=== PATIENT | female | born 1970 | race Caucasian/White ===

== ENCOUNTER 2017-10-13 00:24 | Inpatient (IN) | payer OTHER ==
[~2017-10-13] VITALS: Ht 170.2 cm; Wt 102.1 kg
[2017-10-13] VITALS (7 sets, daily range): BP systolic 109–155; BP diastolic 61–104
[~2017-10-13 00:24] MED LIST: AMITRIPTYLINE H10 M1; HYDROCODON-ACE1 EA10; HYDROCODON-ACE1 EACH PO; NASONEX17 GM
[2017-10-13] MEDS ORDERED: LISINOPRIL5 MG PO (00:33)
[2017-10-13 00:49] LABS: ABSOLUTE BASOPHILS 0.1 thou/uL (0.0-0.2); ABSOLUTE EOSINOPHILS 0.2 thou/uL (0.0-0.7); ABSOLUTE MONOCYTES 0.8 thou/uL (0.0-1.2); ABSOLUTE NEUTROPHILS 6.9 thou/uL (1.6-8.1); BASOPHILS 0.8 %; EOSINOPHILS 1.7 %; HEMATOCRIT 47.8 % (37.0-47.0); HEMOGLOBIN 16.2 gm/dL (12.0-15.0); LYMPHOCYTES 27.6 %; MCH 31.3 pg (26.0-34.0); MCHC 33.9 g/dL (28.0-37.0); MCV 92.4 fL (80.0-100.0); MONOCYTES 7.5 %; MPV 8.6 fl. (7.2-11.1); NUCLEATED RBCS 0 /100WBC; PLATELET COUNT* 310 thou/uL (150-400); POLYS 62.4 %; RBC 5.17 mil/uL (4.20-5.00); RDW-CV 13.2 % (10.5-14.5)
[2017-10-13 02:05] LABS: CALCIUM 8.4 mg/dL (8.5-10.1); CREATININE 0.9 mg/dL (0.6-1.3); POTASSIUM 3.3 mmol/L (3.5-5.1)
[2017-10-13 02:11] LABS: ALBUMIN 3.2 g/dL (3.4-5.0); TOTAL BILIRUBIN 0.3 mg/dL (<0.1-1.0); TOTAL PROTEIN 6.3 g/dL (6.4-8.2); TROPONIN-I LEVEL 0.39 ng/mL (<0.06)
--- NOTE | 2017-10-13 15:24 | EKG ---
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: SRIDEVI : 1970 Requested By: Kathleen De La Cruz Order Number: [id number] MD: Jb Avilez Measurements Intervals [place] Rate: 162 P: 0 IN: QRS: 58 QRSD: 95 T: 261 QT: 269 QTc: 442 Interpretive Statements Supraventricular tachycardia Repol abnrm suggests ischemia, diffuse leads Baseline wander in lead(s) V5,V6 No previous ECG available for comparison Electronically Signed On 10-13-2017 15:24:00 CDT by Jb Avilez [email or web address] <ELECTRONICALLY SIGNED> By: Jb Avilez MD, [facility] 10/13/17 1524 0031 0031 Jb Avilez MD, [facility] /EPI
[2017-10-14 00:01] VITALS: BP 98/49
[2017-10-14 04:00] VITALS: BP 104/54
[2017-10-14 06:22] LABS: CHOLESTEROL 192 mg/dL (<200); HDL CHOLESTEROL 40 mg/dL (>40); LDL CHOLESTEROL 110 mg/dL (<100); SERUM ASSESSMENT Clear; TC:HDL 4.8 Ratio (Not establshd); TRIGLYCERIDE 213 mg/dL (<150); VLDL 43 mg/dL (<40)
[2017-10-14 08:19] VITALS: BP 93/55
[2017-10-14 09:48] VITALS: BP 93/55
--- NOTE | 2017-10-14 11:54 | EKG ---
[place] [address] ELECTROCARDIOGRAM REPORT Name: ABEL QUACH Room: [address] ADM IN M.R.#: [id number] Admission: 10/13/17 Attend Phys: Collin Baez, Discharge: Date of : 70 Report #: [id number] THIS REPORT FOR: //name// [facility] Test Date: 2017-10-14 Test Time: 08:44:35 Pat Name: ABEL QUACH Department: Room: [address] Gender: F Account Leader: 27O : 1970 Requested By: Jb Avilez Order Number: [id number] Maryann MD: Jb Avilez Measurements Intervals [place] Rate: 49 P: 52 NV: 128 QRS: 63 QRSD: 99 T: 36 QT: 466 QTc: 421 Interpretive Statements Sinus bradycardia Compared to ECG 10/13/2017 00:31:57 Supraventricular tachycardia no longer present Possible ischemia no longer present Electronically Signed On 10-14-2017 11:54:44 CDT by Jb Avilez [email or web address] <ELECTRONICALLY SIGNED> By: Jb Avilez MD, [facility] 10/14/17 1154 0844 Jb Avilez MD, [facility] /EPI
--- NOTE | 2017-10-14 14:34 | 2DMMODE ---
[place] [address] 2 D/M-MODE ECHOCARDIOGRAM Name: MAINABEL JACKSON Room: [address] IN [facility]#: [id number] Admission: 10/13/17 Attend Phys: Collin Garces Discharge: Date of : 70 Date of Service: 10/14/17 1434 Report #: [id number] THIS REPORT FOR: //name// APPROVED REPORT Study performed: 10/14/2017 11:26:41 EXAM: Comprehensive 2D, Doppler, and color-flow Echocardiogram Patient Location: In-Patient Room #: 220 Status: routine BSA: 2.13 HR: 52 bpm BP: 93/55 mmHg Other Information Study Quality: Good Indications Elevated Troponin SVT 2D Dimensions LVEF(%): 73.87 (>50%) IVSd: 8.12 (7-11mm) LVOT Diam: 19.33 (18-24mm) LVDd: 55.12 mm PWd: 7.75 (7-11mm) Ascending Ao: 22.38 (22-36mm) LVDs: 31.26 (25-40mm) Aortic Root: 22.78 mm Romero's LVEF: 73.87 % Volumes Left Atrial Volume (Systole) LA ESV Index: 25.00 mL/m2 Aortic Valve AoV Peak David.: 1.36 m/s AO Peak Gr.: 7.43 mmHg LVOT Max P.55 mmHg AO Mean Gr.: 3.72 mmHg LVOT Mean P.55 mmHg LVOT Max V: 0.94 m/s AO V2 VTI: 25.99 cm LVOT Mean V: 0.56 m/s BRANDON (VTI): 2.38 cm2 LVOT V1 VTI: 21.06 cm Mitral Valve E/A Ratio: 1.35 [place] [address] 2 D/M-MODE ECHOCARDIOGRAM Name: MAINABELGUANACO JACKSON Room: [address] IN ..#: [id number] Admission: 10/13/17 Attend Phys: Collin Garces Discharge: Date of : 70 Date of Service: 10/14/17 1434 Report #: [id number] MV Decel. Time: 149.18 ms MV E Max David.: 1.01 m/s MV PHT: 43.26 ms MVA (PHT): 5.09 cm2 TDI E/Lateral E': 8.42 E/Medial E': 5.94 Medial E' David.: 0.17 m/s Lateral E' David.: 0.12 m/s Pulmonary Valve PV Peak David.: 1.06 m/s PV Peak Gr.: 4.50 mmHg Tricuspid Valve TR Peak Gr.: 20.16 mmHg RVSP: 25.16 mmHg Left Ventricle The left ventricle is normal size. There is normal LV segmental wall motion. There is normal left ventricular wall thickness. Left ventricular systolic function is normal. The left ventricular ejection fraction is within the normal range. LVEF is 55-60%. The left ventricular diastolic function is normal. Right Ventricle The right ventricle is normal size. The right ventricular systolic function is normal. Atria The left atrium size is normal. The right atrium size is normal. Aortic Valve The aortic valve is normal in structure. No aortic regurgitation is present. There is no aortic valvular stenosis. Mitral Valve The mitral valve is normal in structure. Mild mitral regurgitation. No evidence of mitral valve stenosis. Tricuspid Valve The tricuspid valve is normal in structure. Mild tricuspid regurgitation. The RVSP is _25.2 mmHg. Pulmonic Valve Pulmonic valve is not well visualized. There is no pulmonic [place] [address] 2 D/M-MODE ECHOCARDIOGRAM Name: ABEL QUACH Room: [address] IN M.R.#: [id number] Admission: 10/13/17 Attend Phys: Collin Garces Discharge: Date of : 70 Date of Service: 10/14/17 1434 Report #: [id number] Great Vessels The aortic root is normal in size. IVC is normal in size and collapses with >50% inspiration Pericardium There is no pericardial effusion. <Conclusion> LVEF is 55-60%. Mild mitral regurgitation. <ELECTRONICALLY SIGNED> By: Jb Avilez MD, [facility] 10/14/17 1434 1434 1434 Jb Avilez MD, FACC /INF
[2017-10-14 15:37] VITALS: BP 144/79
[2017-10-14] MEDS ORDERED: FLECAINIDE ACET50 M1 PO (16:36)
[2017-10-14 16:40] VITALS: BP 93/55
--- NOTE | 2017-10-14 17:09 | CARDNUC ---
[place] [address] CARDIAC NUCLEAR IMAGING REPORT Name: ABEL QUACH Room: [address] IN [facility]#: [id number] Admission: 10/13/17 Attend Phys: Collin Garces Discharge: 10/14/17 Date of : 70 Date of Service: 10/14/17 1709 Report #: [id number] THIS REPORT FOR: //name// APPROVED REPORT Study performed: 10/14/2017 07:55:00 Exam: Nuclear Stress Test Indication: Troponin elevation,PSVT Patient Location: In-Patient Room #: 220 Stress Tech: Deann Sterling Stress Nurse: Estrella Lara RN NM Tech:ZARINA Mark Ht: 5 ft 7 in Wt: 225 lbs BSA: 2.13 m2 BMI: 35.23 Medical History Medical History: HTN, Hyperlipidemia, Smoking Medications: LISINOPRIL, SOTALOL,ASA Allergies: No known drug allergies Cardiac Risk Factors: Hyperlipidemia, HTN, Smoking, FHX of CAD Exercise History: Physically active Meds Held (24 hrs): - Stress Test Details Stress Test: Pharmacologic stress was paired with low level exercise. Reason for pharmacologic stress test: physical limitation. HR Resting HR: 54 bpm Max Heart Rate (APMHR): 173 bpm Max HR Achieved: 103 bpm Target HR (85% APMHR): 147 bpm % of APMHR: 59 Recovery HR: 78 bpm BP Resting BP: 110/78 mmHg Max BP: 118/60 mmHg ECG Resting ECG: Sinus Rhythm, nonspecific [place] [address] CARDIAC NUCLEAR IMAGING REPORT Name: ABEL QUACH Room: [address]#: [id number] Admission: 10/13/17 Attend Phys: Collin Garces Discharge: 10/14/17 Date of : 70 Date of Service: 10/14/17 1709 Report #: [id number] Stress ECG: Sinus Rhythm, nonspecific ST-T abnormalities ST Change: None Arrhythmia: None Recovery ECG: Sinus Rhythm, nonspecific ST-T abnormalities Recovery ST Change: None Recovery Arrhythmia: None Clinical Reason for Termination: Completed protocol Stress Symptoms: Chest pain Exercise duration: 4 min 0 sec Exercise capacity: 2.3 METs The patient tolerated Lexiscan infusion without significant symptoms. Stress ECG Conclusion The baseline 12-lead electrocardiogram shows sinus rhythm with some nonspecific ST segment EKGs obtained during and post Lexiscan infusion show sinus rhythm with no significant ST or T wave changes when compared baseline. There were no stress-induced arrhythmias. NM EXAM: Myocardial Perfusion STRESS/REST Imaging Protocol: Stress Tc-99m/Rest Tc-99m 2 days Pharmacologic Stress Pharmacologic stress test was performed by injecting Regadenoson 0.4 mg IV push followed by the intravenous injection of 38.0 mCi of Tc-99m Sestamibi. Time of stress injection: 1350 Date: 10/14/2017 Time of stress imagin Administration Route: IV Gated Stress SPECT was performed 40 minutes after stress injection. The images were gated to evaluate regional wall motion and calculate left ventricular ejection fraction. Prone imaging was performed. Study Quality Study: Good Artifact: No artifact Study Data Post stress, the left ventricular ejection was 50%[place] [address] CARDIAC NUCLEAR IMAGING REPORT Name: ABEL QUACH Room: [address] IN [facility]#: [id number] Admission: 10/13/17 Attend Phys: Collin Garces Discharge: 10/14/17 Date of : 70 Date of Service: 10/14/17 1709 Report #: [id number] Perfusion Myocardial perfusion images obtained post Lexiscan stress show uniform uptake of the radioisotope throughout the myocardium without defect. Wall Motion Normal left ventricular wall motion. Nuclear Conclusion ECG Findings: non-diagnostic Clinical Findings: negative for ischemia Nuclear Findings: negative for ischemia Exercise Capacity: not assessed Left Ventricular Function: normal Risk Study: low Myocardial perfusion images show no defect to suggest infarct or ischemia. Left ventricular systolic function appears normal on gated studies. This is a low risk study. <Conclusion> The baseline 12-lead electrocardiogram shows sinus rhythm with some nonspecific ST segment EKGs obtained during and post Lexiscan infusion show sinus rhythm with no significant ST or T wave changes when compared baseline. There were no stress-induced arrhythmias. <ELECTRONICALLY SIGNED> By: Tawanda Garcia MD, FACC 10/14/171708 08 08 Tawanda Garcia MD, FACC /INF
--- NOTE | 2017-10-14 18:03 | CON ---
[address] [address] CONSULTATION Name: ABEL QUACH Room: [address] IN M.R.#: [id number] Admission: 10/13/17 Attend Phys: Collin Baez, Discharge: 10/14/17 Date of : 70 Report #: [id number] THIS REPORT FOR: //name// CC: CYNTHIA physician/PCP Tabby Baez DATE OF SERVICE: 10/13/2017 HISTORY OF PRESENT ILLNESS: The patient is a 47-year-old single white female who came into Emergency Room complaining of palpitations. The patient had no previous history of heart disease. She notes about 6 months ago, she felt heart racing about 2 hours. She saw a primary care physician, but no further cardiac workup was recommended. Last night, she was at home when she began to feel her heart beating fast and irregular. It was hard to take a deep breath. This lasted for several hours. She finally came to the Emergency Room last night. She is noted to be in a narrow complex tachycardia. She was given IV adenosine. She converted to sinus rhythm. I was asked to see her for further evaluation and treatment. She is not very active, but denies any chest pain. She is short of breath with exertion. She has had no syncope or edema. PAST MEDICAL HISTORY: She is , last menstrual period was 2 years ago when she went through menopause. She has had a tubal ligation and cholecystectomy. She has a history of hypertension. She has had high cholesterol. No diabetes. MEDICATIONS: Include lisinopril. ALLERGIES: She has no known drug allergies. FAMILY HISTORY: Her brother had stent. SOCIAL HISTORY: She is . Currently engaged. 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 She lives in [place]. She occasionally smokes cigarettes, occasionally drinks up to 3 beers a day. She denies illicit drug use. REVIEW OF SYSTEMS: She has no history of stroke. She is overweight being 5 feet 7 inches, 225 pounds. She has no history of snoring at night. No history of asthma. She had a previous EGD for indigestion, has a small ulcer. She has had no history of liver disease, kidney disease, cancer, psychiatric illness. PHYSICAL EXAMINATION: GENERAL: Revealed a middle-aged female, appeared in no distress. VITAL SIGNS: She had blood pressure of 114/60, pulse 70. She is afebrile. HEENT: She was anicteric, conjunctivae pink. Mucous membranes moist. NECK: Veins nondistended. No carotid bruits. CHEST: [place] [address] CONSULTATION Name: ABEL QUACH Room: [address] IN M.R.#: [id number] Admission: 10/13/17 Attend Phys: Collin Baez, Discharge: 10/14/17 Date of : 70 Report #: [id number] CARDIAC: Regular rate and rhythm, without rub or murmur. ABDOMEN: Obese, soft, nontender. EXTREMITIES: Had no edema. Posterior tibial pulse 2+ bilaterally. SKIN: Warm, dry. NEUROLOGIC: Nonfocal. LABORATORY DATA: Her ECG on admission showed what appeared to represent a narrow complex tachycardia at 160 beats per minute, nonspecific ST and T-wave change. Currently, the patient appears to be in a sinus rhythm with no delta waves or QT prolongation. Her workup in the Emergency Room last night, no x-rays were obtained. Potassium is only 3.3, creatinine 0.9, glucose 114. Liver function studies were normal. White blood cell count 11.0, hemoglobin 16.2. IMPRESSION AND RECOMMENDATIONS: 1. Paroxysmal supraventricular tachycardia. No evidence of preexcitation. Recommend starting sotalol. If recurrent, I would consider ablation. 2. Obesity. I would recommend diet and exercise in an effort to lose weight. 3. Hypertension. The patient is on an TIAGO inhibitor. 4. Tobacco abuse. 5. Excessive alcohol intake. <ELECTRONICALLY SIGNED> By: Jb Avilez MD, [facility] 10/14/17 1803 1101 [id number] Avilez MD, FAC /nt
--- NOTE | 2017-10-14 18:03 | CON ---
[address] [address] CONSULTATION Name: ABEL QUACH Room: [address] IN M.R.#: [id number] Admission: 10/13/17 Attend Phys: Collin Baez, Discharge: 10/14/17 Date of : 70 Report #: [id number] THIS REPORT FOR: //name// CC: CYNTHIA physician/PCP Collin Baez DATE OF SERVICE: 10/13/2017 ADDENDUM REVIEW OF SYSTEMS: She has no history of stroke. She is overweight being 5 feet 7 inches, 225 pounds. She has no history of snoring at night. No history of asthma. She had a previous EGD for indigestion, has a small ulcer. She has had no history of liver disease, kidney disease, cancer, psychiatric illness. PHYSICAL EXAMINATION: GENERAL: Revealed a middle-aged female, appeared in no distress. VITAL SIGNS: She had blood pressure of 114/60, pulse 70. She is afebrile. HEENT: She was anicteric, conjunctivae pink. Mucous membranes moist. NECK: Veins nondistended. No carotid bruits. CHEST: Clear to auscultation. CARDIAC: Regular rate and rhythm, without rub or murmur. ABDOMEN: Obese, soft, nontender. EXTREMITIES: Had no edema. Posterior tibial pulse 2+ bilaterally. SKIN: Warm, dry. NEUROLOGIC: Nonfocal. LABORATORY DATA: Her ECG on admission showed what appeared to represent a narrow complex tachycardia at 160 beats per minute, nonspecific ST and T-wave change. Currently, the patient appears to be in a sinus rhythm with no delta waves or QT prolongation. Her workup in the Emergency Room last night, no x-rays were obtained. Potassium is only 3.3, creatinine 0.9, glucose 114. Liver function studies were normal. White blood cell count 11.0, hemoglobin 16.2. IMPRESSION AND RECOMMENDATIONS: 1. Paroxysmal supraventricular tachycardia. No evidence of preexcitation. Recommend starting sotalol. If recurrent, I would consider ablation. 2. Obesity. I would recommend diet and exercise in an effort to lose weight. 3. Hypertension. The patient is on an TIAGO inhibitor. 4. Tobacco abuse. 5. Excessive alcohol intake. <ELECTRONICALLY SIGNED> By: Jb Avilez MD, FACC 10/14/17 1803 1104 1534Dba Avilez MD, FACC /nt
== END 2017-10-14 17:04 | disposition home or self-care (01) | DRG 641 ==
LOC: M.ERS 00:24 → M.2W 02:43 → M.TBA-ER 02:43 → M.2W 03:01
PROVIDERS: Emergency Medicine; Internal Medicine Cardiovascular Disease; ADMIT Family Medicine
DX: E86.0 Dehydration (principal); I47.1 Supraventricular tachycardia; I10 Essential (primary) hypertension; E78.00 Pure hypercholesterolemia, unspecified; E66.9 Obesity, unspecified; F17.210 Nicotine dependence, cigarettes, uncomplicated; R51 Headache; K20.9 Esophagitis, unspecified; F10.10 Alcohol abuse, uncomplicated; F15.10 Other stimulant abuse, uncomplicated; Z79.82 Long term (current) use of aspirin; Z79.899 Other long term (current) drug therapy; Z90.49 Acquired absence of other specified parts of digestive tract; Z82.49 Family history of ischemic heart disease and other diseases of the circulatory system; Z68.35 Body mass index [BMI] 35.0-35.9, adult